=== PATIENT | male | born 1990 | race African-American/Black ===

== ENCOUNTER 2016-09-28 14:42 | Emergency (ER) | payer MEDICAID ==
[2016-09-28 16:56] LABS: URINE SOURCE CLEAN CATCH
[2016-09-28 16:59] LABS: URINE APPEARANCE CLEAR; URINE BILIRUBIN NEG (NEG); URINE BLOOD NEG (NEG); URINE COLOR YELLOW; URINE GLUCOSE NEG (NORM); URINE KETONE NEG (NEG); URINE LEUKOCYTE ESTERASE NEG (NEG); URINE NITRATE NEG (NEG); URINE PROTEIN NEG (NEG); URINE SPECIFIC GRAVITY <=1.005 (1.003-1.035); URINE UROBILINOGEN 0.2 MG/DL (NORM)
[2016-09-28 17:00] LABS: MICRO INDICATED? NO
[2016-10-02 08:41] LABS: CHLAMYDIA TRACH Not Detected (Not Detected); N GONOR Not Detected (Not Detected)
== END 2016-09-28 18:00 | disposition home or self-care (01) ==
LOC: SED 14:42
PROVIDERS: Nurse Practitioner Family
DX: Z20.2 Contact with and (suspected) exposure to infections with a predominantly sexual mode of transmission (principal); R36.9 Urethral discharge, unspecified; F17.210 Nicotine dependence, cigarettes, uncomplicated
CPT/HCPCS: 81003; 87253; 87491; 87591; 96372; 99283; J0696